=== PATIENT | male | born 1950 | race African-American/Black ===

== ENCOUNTER 2024-07-24 14:59 | Inpatient (IN) | payer MEDICARE ==
[~2024-07-24] VITALS: Ht 177.8 cm; Wt 49.2 kg
[2024-07-24] MEDS: IV NS 0.9% 1,000 ML BAG IV ONE (15:45)
[2024-07-24 15:51] LABS: BASOPHILS % (AUTO) 0.9 % (0.0-2.0); EOSINOPHILS % (AUTO) 0.9 % (0.0-6.0); HEMATOCRIT 26 % (39-51); HEMOGLOBIN 8.5 g/dL (13.5-17.5); LYMPHOCYTES # (AUTO) 1.2 K/uL (0.8-4.8); LYMPHOCYTES % (AUTO) 28.8 % (20.0-44.0); MEAN CORPUSCULAR HEMOGLOBIN 31 PG (26.0-33.0); MEAN CORPUSCULAR HGB CONC 33 g/dl (31.0-36.0); MEAN CORPUSCULAR VOLUME 94 fL (80-96); MONOCYTES # (AUTO) 0.3 K/uL (0.1-1.30); MONOCYTES % (AUTO) 6.4 % (2.0-12.0); NEUTROPHILS # (AUTO) 2.7 K/uL (1.8-8.9); PLATELET COUNT (AUTO) 146 K/uL (150-450); RED BLOOD CELL COUNT(AUTO) 2.77 MIL/uL (4.5-6.0); RED CELL DISTRIBUTION WIDTH 17.9 % (11.5-15.0); WHITE BLOOD COUNT (AUTO) 4.3 K/uL (4.3-11.0)
[2024-07-24 15:58] LABS: CALCIUM, SERUM 9.1 mg/dL (8.5-10.1); CARBON DIOXIDE 26 mmol/L (21-32); CHLORIDE 107 mmol/L (98-107); CREATININE 1.3 mg/dL (0.6-1.3); GLUCOSE 110 mg/dL (74-106); POTASSIUM 4.1 mmol/L (3.5-5.1); SODIUM SERUM 142 mmol/L (136-145); UREA NITROGEN, BLOOD 32 mg/dL (7-18)
[2024-07-24 15:59] LABS: SERUM AMMONIA 52 umol/L (11-32)
[2024-07-24 16:00] VITALS: BP 130/63; TEMP 97.9; O2SAT 98
[2024-07-24 16:04] LABS: INR 1.45 (0.91-1.10); PARTIAL THROMBOPLASTIN TIME 29.1 SEC (24.3-34.3)
[2024-07-24 16:12] LABS: THYROID STIMULATING HORMONE < 0.007 uIU/mL (0.358-3.74)
[2024-07-24 16:13] LABS: ALANINE AMINOTRANSFERASE 11 U/L (12-78); ALBUMIN 3.8 g/dL (3.4-5.0); ASPARTATE AMINOTRANSFERASE 29 U/L (15-37); BILIRUBIN,DIRECT 0.4 mg/dL (0.0-0.2); TOTAL PROTEIN, SERUM 7.5 g/dL (6.4-8.2)
[2024-07-24 16:14] LABS: ALCOHOL, BLOOD < 3 mg/dL (0-10); SALICYLATE < 2.8 mg/dL (2.8-20.0)
[2024-07-24 16:32] LABS: ALKALINE PHOSPHATASE 6243 U/L (46-116)
[2024-07-24] MEDS ORDERED: MAGNESIUM HYDROXIDE 30 ML UDC PO PRN (17:00)
[2024-07-24] MEDS ORDERED: ONDANSETRON HCL/PF 4 MG/2 ML VIAL IVP PRN (17:00)
[2024-07-24] MEDS ORDERED: MAG HYDROX/AL HYDROX/SIMETH 30 ML UDC PO PRN (17:00)
[2024-07-24 17:15] LABS: APPEARANCE,URINE SLIGHTLY CLOUDY (CLEAR); BILIRUBIN,URINE NEGATIVE (NEGATIVE); BLOOD, URINE 3+ Ery/uL (NEGATIVE); COLOR,URINE YELLOW (YELLOW); KETONES,URINE NEGATIVE (NEGATIVE); LEUKOCYTE ESTERASE ,URINE NEGATIVE (NEGATIVE); NITRITE, URINE NEGATIVE (NEGATIVE); PROTEIN,URINE 2+ mg/dl (NEGATIVE); UGLUCOSE NEGATIVE (NEGATIVE); UROBILINOGEN,URINE 0.2 EU/dL (0.2)
[2024-07-24 17:23] LABS: AMPHETAMINE, URINE NEGATIVE (NEGATIVE); BARBITURATE, URINE NEGATIVE (NEGATIVE); BENZODIAZEPINE, URINE NEGATIVE (NEGATIVE); CANNABINOID, URINE NEGATIVE (NEGATIVE); COCCAINE, URINE NEGATIVE (NEGATIVE); OPIATE, URINE NEGATIVE (NEGATIVE); PHENCYCLIDINE SCREEN,URINE NEGATIVE (NEGATIVE)
[2024-07-24 17:57] LABS: ADD URINE CULTURE YES; BACTERIA,URINE 1+ /HPF (None Seen); RBC,URINE 21-50 /HPF (0-2); WBC,URINE 0-2 /HPF (0-3)
[2024-07-24 17:58] LABS: SQUAMOUS EPITHELIAL CELL,UR 0-2 /HPF (None Seen)
[2024-07-24] MEDS: IV NS 0.9% 1,000 ML IV PRN (18:05)
[2024-07-24] MEDS: ENOXAPARIN SODIUM 40 MG/0.4 ML DISP.SYRIN SQ SCH (18:07)
[2024-07-24 18:24] VITALS: BP 130/63; TEMP 98.3; O2SAT 98
[2024-07-24 20:00] VITALS: BP 132/62; TEMP 97.3; O2SAT 100
[2024-07-24] MEDS: ACETAMINOPHEN 325 MG TABLET PO PRN (20:39)
[2024-07-25 07:30] VITALS: BP 132/63; TEMP 97.7; O2SAT 100
[2024-07-25] MEDS ORDERED: METO25TA6 PO (09:31)
[2024-07-25] MEDS ORDERED: ACET325T53 PO (09:31)
[2024-07-25] MEDS ORDERED: POLY17PO4 PO (09:31)
[2024-07-25] MEDS ORDERED: ASCO500T10 PO (09:31)
[2024-07-25] MEDS ORDERED: BICA50TA8 PO (09:31)
[2024-07-25] MEDS ORDERED: SENN-261 PO (09:31)
[2024-07-25] MEDS ORDERED: LOSA50TA39 PO (09:31)
[2024-07-25] MEDS ORDERED: CLON0.1T PO (09:31)
[2024-07-25] MEDS ORDERED: ONDA-97 PO (09:31)
[2024-07-25] MEDS ORDERED: MULT-594 PO (09:31)
[2024-07-25] MEDS ORDERED: FERR325T24 PO (09:31)
[2024-07-25] MEDS ORDERED: ARGI1POW13 PO (09:31)
[2024-07-25] MEDS ORDERED: PROP50TA3 PO (09:31)
[2024-07-25] MEDS ORDERED: MAGN400O6 PO (09:31)
[2024-07-25] MEDS ORDERED: ZINC220C6 PO (09:31)
[2024-07-25] MEDS ORDERED: TAMS-12 PO (09:31)
[2024-07-25] MEDS ORDERED: BISA10SU11 RC (09:31)
[2024-07-25] MEDS ORDERED: NA P133E RC (09:31)
[2024-07-25 10:27] LABS: BASOPHILS % (AUTO) 0.9 % (0.0-2.0); EOSINOPHILS % (AUTO) 1.3 % (0.0-6.0); HEMATOCRIT 25 % (39-51); HEMOGLOBIN 7.6 g/dL (13.5-17.5); LYMPHOCYTES # (AUTO) 1.2 K/uL (0.8-4.8); LYMPHOCYTES % (AUTO) 30.8 % (20.0-44.0); MEAN CORPUSCULAR HEMOGLOBIN 30 PG (26.0-33.0); MEAN CORPUSCULAR HGB CONC 30 g/dl (31.0-36.0); MEAN CORPUSCULAR VOLUME 99 fL (80-96); MONOCYTES # (AUTO) 0.3 K/uL (0.1-1.30); MONOCYTES % (AUTO) 6.7 % (2.0-12.0); NEUTROPHILS # (AUTO) 2.3 K/uL (1.8-8.9); NEUTROPHILS % (AUTO) 60.3 % (43.0-81.0); PLATELET COUNT (AUTO) 100 K/uL (150-450); RED BLOOD CELL COUNT(AUTO) 2.54 MIL/uL (4.5-6.0); RED CELL DISTRIBUTION WIDTH 18.1 % (11.5-15.0); WHITE BLOOD COUNT (AUTO) 3.8 K/uL (4.3-11.0)
[2024-07-25 10:49] LABS: ALBUMIN 2.9 g/dL (3.4-5.0); BILIRUBIN,DIRECT 0.3 mg/dL (0.0-0.2); BILIRUBIN,TOTAL 1.7 mg/dL (0.2-1.0); CALCIUM, SERUM 8.4 mg/dL (8.5-10.1); CREATININE 1.1 mg/dL (0.6-1.3); MAGNESIUM 2.3 mg/dL (1.8-2.4); PHOSPHORUS 2.9 mg/dL (2.5-4.9); POTASSIUM 4.1 mmol/L (3.5-5.1); TOTAL PROTEIN, SERUM 5.9 g/dL (6.4-8.2)
[2024-07-25] MEDS: LACTULOSE 10 G/15 ML UDC (PYXIS) PO SCH (14:06)
[2024-07-25 16:00] VITALS: BP 131/65; TEMP 97.7; O2SAT 98
[2024-07-25 20:00] VITALS: BP 146/64; TEMP 97.5; O2SAT 95
[2024-07-26 07:03] LABS: CALCIUM, SERUM 8.1 mg/dL (8.5-10.1); CREATININE 1.1 mg/dL (0.6-1.3); POTASSIUM 4.2 mmol/L (3.5-5.1)
[2024-07-26 07:13] LABS: EOSINOPHILS # (AUTO) 0.1 K/uL (0.0-0.7); EOSINOPHILS % (AUTO) 1.2 % (0.0-6.0); HEMATOCRIT 27 % (39-51); HEMOGLOBIN 8.3 g/dL (13.5-17.5); LYMPHOCYTES # (AUTO) 1.1 K/uL (0.8-4.8); LYMPHOCYTES % (AUTO) 25.8 % (20.0-44.0); MEAN CORPUSCULAR HEMOGLOBIN 31 PG (26.0-33.0); MEAN CORPUSCULAR HGB CONC 31 g/dl (31.0-36.0); MEAN CORPUSCULAR VOLUME 100 fL (80-96); MONOCYTES # (AUTO) 0.3 K/uL (0.1-1.30); NEUTROPHILS # (AUTO) 2.8 K/uL (1.8-8.9); PLATELET COUNT (AUTO) 125 K/uL (150-450); RED BLOOD CELL COUNT(AUTO) 2.69 MIL/uL (4.5-6.0); RED CELL DISTRIBUTION WIDTH 18.3 % (11.5-15.0); WHITE BLOOD COUNT (AUTO) 4.4 K/uL (4.3-11.0)
[2024-07-26 08:00] VITALS: BP 157/78; TEMP 97.7; O2SAT 98
[2024-07-26 16:00] VITALS: BP 155/74; TEMP 98; O2SAT 100
[2024-07-26 20:00] VITALS: BP 144/73; TEMP 98.2; O2SAT 95
[2024-07-27 08:00] VITALS: BP 156/84; TEMP 97.7; O2SAT 100
[2024-07-27] MEDS ORDERED: CLONIDINE HCL 0.1 MG TABLET PO PRN (11:00)
[2024-07-27] MEDS ORDERED: IOHEXOL-300 100 ML VIAL IV ONE (12:09)
[2024-07-27] MEDS ORDERED: IV NS 0.9% 250 ML IV ONE (12:10)
[2024-07-27] MEDS ORDERED: CT SWABBABLE VALVE TRANS SET 1 EA INFUS.SET MC ONE (12:10)
[2024-07-27] MEDS ORDERED: RIFA550T PO (13:10)
[2024-07-27] MEDS ORDERED: LACT10SO29 PO (13:10)
[2024-07-27] MEDS ORDERED: METOPROLOL TARTRATE 25 MG TABLET PO SCH (17:00)
[2024-07-27] MEDS ORDERED: TAMSULOSIN 0.4 MG CAP.SR.24H PO SCH (17:00)
[2024-07-28] MEDS ORDERED: FERROUS SULFATE (325 MG) 325 MG/TAB TABLET PO SCH (09:00)
[2024-07-28] MEDS ORDERED: BISACODYL SUPP (10 MG) 10 MG/SUPP.RECT SUPP.RECT RC SCH (09:00)
[2024-07-28] MEDS ORDERED: BICALUTAMIDE 50 MG TABLET PO SCH (09:00)
[2024-07-28] MEDS ORDERED: LOSARTAN POTASSIUM 50 MG TABLET PO SCH (09:00)
== END 2024-07-27 14:00 | DRG 640 ==
LOC: ER 15:25 → MED 16:54
PROVIDERS: ADMIT Nurse Practitioner Family; ATTEND Nurse Practitioner Acute Care
DX: E86.0 Dehydration (principal); G93.41 Metabolic encephalopathy; D68.59 Other primary thrombophilia; N17.9 Acute kidney failure, unspecified; E05.91 Thyrotoxicosis, unspecified with thyrotoxic crisis or storm; E72.20 Disorder of urea cycle metabolism, unspecified; R62.7 Adult failure to thrive; I11.0 Hypertensive heart disease with heart failure; I50.9 Heart failure, unspecified; Z85.07 Personal history of malignant neoplasm of pancreas; Z85.46 Personal history of malignant neoplasm of prostate; Z86.73 Personal history of transient ischemic attack (TIA), and cerebral infarction without residual deficits; K76.9 Liver disease, unspecified; E80.6 Other disorders of bilirubin metabolism; R53.1 Weakness; R73.9 Hyperglycemia, unspecified; D64.9 Anemia, unspecified; R74.8 Abnormal levels of other serum enzymes
CPT/HCPCS: 36415; 71045-TC; 80048-TC; 80076-TC; 81001; 82140-TC; 82962-TC; 83735-TC; 84100-TC; 84443-TC; 85025-TC; 85730-TC; 87081-TC; 87086-TC; 87186-TC; 97110-TC; 97112-TC; 97530-TC; A4223; G0378; G0480; J1650; J7030; J7050; Q9967